=== PATIENT | female | born 1930 | race Caucasian/White ===

== ENCOUNTER 2018-11-14 23:42 | Emergency (ER) | payer BC ==
[~2018-11-14 23:42] MED LIST: AMLO1TAB39 PO; ASCO-316 PO; ASPI-1073 PO; ATOR20TA PO; CLOP75TA16 PO; COR6 PO; FOLI-43 PO; FURO40TA5 PO; GLIP5TAB12 PO; KRIL1CAP PO; LORA2TAB2 PO; METF-414 PO; MULT-1030 PO; POTA20TA12 PO; UBID100C45 PO; VITA1TAB18 PO
== END 2018-11-15 00:41 | disposition left against medical advice (07) ==
LOC: ER 23:42
DX: Z53.21 Procedure and treatment not carried out due to patient leaving prior to being seen by health care provider (principal)